=== PATIENT | male | born 1990 | race Two or more races ===

== ENCOUNTER 2019-05-22 16:59 | Emergency (ER) | payer MEDICAID, OTHER ==
[~2019-05-22] VITALS: Ht 177.8 cm; Wt 90.7 kg
[2019-05-22 20:26] VITALS: BP 146/91
== END 2019-05-22 22:07 | disposition home or self-care (01) ==
LOC: ER 17:05
DX: L03.113 Cellulitis of right upper limb (principal); F12.10 Cannabis abuse, uncomplicated